=== PATIENT | female | born 1950 | race Caucasian/White ===

== ENCOUNTER 2017-06-21 08:15 | Outpatient (CLI) | payer MEDICARE, MEDICAID | END 2017-06-21 08:16 | disposition home or self-care (01) | LOC: BICMAMMO 08:15 | PROVIDERS: ATTEND Nurse Practitioner Family | DX: Z12.31 Encounter for screening mammogram for malignant neoplasm of breast (principal) | CPT/HCPCS: 77063; 77067 ==

== ENCOUNTER 2018-01-19 08:26 | Outpatient (CLI) | payer MEDICARE, MEDICAID ==
[2018-01-19 10:22] LABS: #Eosinphils 0.2 thou/uL (0.0-0.7); #Monocytes 0.5 thou/uL (0.11-0.59); #Neutrophils 4.4 thou/uL (1.40-6.50); %Basophils 0.6 % (0.0-1.0); %Eosinophils 2.4 % (0.0-10.0); %Lymphocytes 37.3 % (21.0-51.0); %Monocytes 5.7 % (0.0-10.0); %Neutrophils 54.1 % (42.0-75.0); Hemoglobin 12.3 g/dL (12.0-16.0); Mean Corpuscular HGB CONC 34.6 g/dL (32.0-36.0); Mean Corpuscular Hemoglobin 31.4 pg (27.0-31.0); Mean Corpuscular Volume 90.8 fL (78.0-98.0); Mean Platelet Volume 6.2 fL (7.4-10.4); Platelet Count 276 thou/uL (130-400); RBC Distribution Width 11.7 % (11.5-14.5); Red Blood Cell (RBC) Count 3.93 mill/uL (4.20-5.40); White Blood Cell (WBC) Count 8.1 thou/uL (4.8-10.8)
[2018-01-19 10:27] LABS: Bilirubin Negative (Negative); Blood, Urine Negative (Negative); Clarity CLEAR (Clear); Glucose, Urine (Dipstick) Negative (Negative); Leukocyte Moderate (Negative); Nitrite Negative (Negative); Protein, Urine (Dipstick) Negative (Neg-Trace); Prothrombin Time 13.3 SEC (12.0-14.7); Specific Gravity, Urine 1.024 (1.002-1.036); Urobilinogen 0.2 mg/dL (0.2-1.0); pH, Urine 5.5 (5.0-9.0)
--- NOTE | 2018-01-19 10:27 | RAD ---
RADIOGRAPH CHEST 2 VIEWS: DATE: 01-19-18 HISTORY: 67-year-old female for preoperative evaluation. FINDINGS: There is no air space density, pulmonary edema, pleural effusion, pneumothorax, or cardiomegaly. Ther e is left lateral lower pleural thickening. No interval change overall since 01-16-16. IMPRESSION: No acute cardiopulmonary findings. elle POS: [facility]
[2018-01-19 10:40] LABS: Bacteria/HPF None Seen HPF (None Seen); Hyaline Casts/LPF 0-3 HYALINE CAST LPF (0-3 Hyaline); Pathc Cast-AUWi Flag 0.29 (0-2.49); Squamous Epithelial 0-3 HPF (0-3)
[2018-01-19 10:41] LABS: Anion Gap 13 mmol/L (10-20); BUN (Urea Nitrogen) 30 mg/dL (9.8-20.1); Calc. Creatinine Clearance 0 mL/min (70-130); Calcium 9.6 mg/dL (7.8-10.44); Carbon Dioxide 24 mmol/L (23-31); Chloride 108 mmol/L (98-107); Estimated GFR-MDRD 49; Glucose 100 mg/dL (80-115); Potassium 3.5 mmol/L (3.5-5.1); Sodium 141 mmol/L (136-145)
--- NOTE | 2018-01-19 17:10 | EKG ---
Test Reason : Blood Pressure : / mmHG Vent. Rate : 069 BPM Atrial Rate : 069 BPM P-R Int : 176 ms QRS Dur : 146 ms QT Int : 428 ms P-R-T Axes : 065 -71 046 degrees QTc Int : 458 ms Normal sinus rhythm Right bundle branch block Left anterior fascicular block Bifascicular block Abnormal ECG Confirmed by NOLA DIOR ([id number]) on 01/19/2018 5:10:24 PM Referred By: NATE Confirmed By:NOLA DIOR
== END 2018-01-19 08:27 | disposition home or self-care (01) ==
LOC: LABBT 08:26
PROVIDERS: ATTEND Orthopaedic Surgery
DX: Z01.818 Encounter for other preprocedural examination (principal); M17.12 Unilateral primary osteoarthritis, left knee
CPT/HCPCS: 71046; 80048; 81001; 85025; 85610; 87081; 93005; 93010

== ENCOUNTER 2018-01-19 08:45 | Inpatient (IN) | payer MEDICARE, MEDICAID ==
[2018-01-31] MEDS ORDERED: CEFAZOLIN/Water 2 GM/20 ML SYRINGE ONE (06:25)
[2018-01-31] MEDS ORDERED: Sodium Chloride 0.9% 100 ML ONE (06:25)
[2018-01-31] MEDS ORDERED: Fentanyl 100 MCG/2 ML VIAL ONE ×3 (06:29→09:37)
[2018-01-31] MEDS ORDERED: Midazolam HCl 2 mg/2 ml Vial ONE (06:29)
[2018-01-31] MEDS ORDERED: Lidocaine 1% (PF) 30 ML VIAL ONE (06:30)
[2018-01-31] MEDS ORDERED: Promethazine HCl 25 MG/ML VIAL ONE (09:56)
[2018-01-31] MEDS ORDERED: Zolpidem Tartrate 5 MG TAB PO PRN ×3 (10:30→12:31)
[2018-01-31] MEDS ORDERED: traMADol HCl 50 MG TAB PO PRN ×3 (10:30→11:42)
[2018-01-31] MEDS ORDERED: Ondansetron HCl/PF 4 MG/2 ML Vial IVP PRN ×3 (10:30→12:31)
[2018-01-31] MEDS ORDERED: Promethazine HCl 25 MG/ML VIAL IM PRN ×3 (10:30→12:31)
[2018-01-31] MEDS ORDERED: Fentanyl 100 MCG/2 ML VIAL IV PRN (10:30)
[2018-01-31] MEDS ORDERED: HYDROcodone/Acetaminophen 5/325 mg Tablet PO PRN ×2 (10:30)
--- NOTE | 2018-01-31 11:33 | OP ---
DATE OF PROCEDURE: 01/31/2018 PREOPERATIVE DIAGNOSIS: Left knee arthritis. POSTOPERATIVE DIAGNOSIS: Left knee arthritis. SURGEON: Alfonso Campos M.D. DATA WAREHOUSE SPECIALIST: Sherri Biswas PA-C PROCEDURE: Left total knee arthroplasty using [place] [employer] 4 femur, 3 tibia, 9 mm CSX3 polyethy maryann, and A29 patella. PROCEDURE IN DETAIL: After informed consent was obtained in the preoperative holding area. The star ent was taken to the operative suite where general anesthesia was induced. Once adequate level of ge neral anesthesia was obtained, the patient was positioned and a well-padded tourniquet was placed kenyatta und the left proximal thigh. The left lower extremity was then prepped and draped in the usual steri le fashion. Prior to exsanguination, a time out was called and all members of the surgical team agre ed upon site, surgeon, and patient. The extremity was then exsanguinated and the tourniquet was rais ed. A midline longitudinal incision was then made directly over the patella extending two fingerbrea dths above the superior pole of the patella and two fingerbreadths inferior to the inferior patellar pole of the patella. Deeper subcutaneous layers were dissected sharply and local bleeding was contro lled with Bovie electrocautery. A quad tendon longitudinal split was then made sharply and a median parapatellar arthrotomy was carried out both sharp and with Bovie electrocautery, carried down to one fingerbreadth medial to the tibial tubercle. The knee was then placed into flexion and the patella was everted nicely, and a copious fat pad ectomy was performed allowing for greater exposure of the t ibia. The computer-assisted distal femoral fiducial was then placed and pinned firmly, and the dista l femoral cutting guide was pinned firmly into place. The oscillating saw was then used to remove th e appropriate amount of bone. The 4-in-1 cutting block was then placed on the distal femur and the o scillating saw was used to remove the appropriate amount of bone off of the anterior, posterior, and chamfer cuts. After completion of bone cuts, the anterior cruciate ligament was resected sharply and the posterior cruciate ligament retractor was placed and the tibia was subluxed for better exposure. Partial meniscectomies were carried out, and the tibial computer-assisted fiducial was pinned, and the cutting guide was placed. Oscillating saw was then used to remove the bone with Hohmann retracto rs used to take care and protect the collateral ligaments. After the tibial resection was performed, a laminar power generating plant operator was placed in between the freshened bone cuts. The knee placed at 90 degrees and further bilateral meniscectomies were carried out, and the curved osteotome and curettage was used t o remove any excess bone spurs in the posterior compartment. The trial femoral component, tibial bas eplate were placed with the appropriate polyethylene trial insert with an appropriate polyethylene sp acer and patellar button. The knee was taken through full range of motion with flexion and extension from 0-90 degrees and patellar broach squarely in the trochlea without any squinting or subluxation noted. The knee was also stable to varus and valgus stressing at 0, 15, 45, and 90 degrees of flexio n. The drawer was negative. All trial components were then removed and the keel punch was used to pr ovide the appropriate defect in the tibia with a mallet. The freshened bone cuts were copiously irri gated with pulsatile lavage of about 1-1/2 liters to remove all excess debris. The freshened bone cu ts were then dried and with suction and lap sponge. The knee was placed in flexion and retractors we re placed to provide access to all bone cuts. Tobramycin impregnated methyl methacrylate cement was then placed on the freshened bone cuts and implants which were malleted firmly into place. Curettage and Beckley elevators were used to remove any excess bone cement. The knee was placed into full exten hilary and the patellar button was placed under compression, and the cement was allowed to cure. Once completed, the components were again taken through full range of motion and copious irrigation of the knee was carried out with another liter of normal saline. All components were inspected fully with full range of motion and varus and valgus stressing. There was no laxity noted and full extension was observed clinically. Primary closure was accomplished with #2 interrupted Vicryl stitch of the arth rotomy defect. This was oversewn with a #2 running Quill barbed stitch. The gravitational platelet system was then injected into the arthrotomy prior to closure. The subcutaneous layer was then close d with a running 0 barbed Monocryl stitch and skin closure accomplished with a running subcuticular 3 -0 Monocryl barbed Quill stitch and augmented with cement on the skin. Tourniquet was lowered. Good spontaneous return of distal pulses was noted clinically and a sterile dressing was applied to the i ncision. The procedure was terminated without any complications. The patient was awakened in the op erative suite and the tourniquet was removed, and the patient was taken to the recovery room in stabl e condition.
[2018-01-31] MEDS ORDERED: PROVENTIL INHALER 6.7 G (200 INHALATIONS) INH PRN (11:41)
[2018-01-31] MEDS ORDERED: Fentanyl 100 MCG/2 ML VIAL SLOW IVP PRN ×2 (11:42)
[2018-01-31] MEDS ORDERED: diphenhydrAMINE 25 MG CAP PO PRN ×2 (11:42→12:31)
[2018-01-31] MEDS ORDERED: HYDROcodone/Acetaminophen 10/325 mg Tablet PO PRN ×2 (11:42)
[2018-01-31] MEDS ORDERED: HYDROmorphone 2 MG/ML VIAL ONE (12:19)
[2018-01-31] MEDS ORDERED: diphenhydrAMINE 50 MG/ML VIAL IM/IV PRN (12:31)
[2018-01-31] MEDS ORDERED: Naloxone HCl 0.4 mg/ml Vial IV PRN (12:31)
[2018-01-31] MEDS ORDERED: Ropivacaine 0.5% HCl/PF (150 MG/30 ML VIAL) ONE (13:08)
[2018-01-31] MEDS ORDERED: Bupivacaine 0.25% HCL 30 ML VIAL ONE (13:08)
--- NOTE | 2018-01-31 13:11 | RAD ---
LEFT KNEE TWO VIEWS: History: Left knee pain. Arthritis. Knee replacement. FINDINGS: Total knee prosthesis is in place without perihardware lucency. Intracapsular and soft tissue gas are consistent with recent surgery. IMPRESSION: Left knee prosthesis in good radiographic position. POS: [facility]
[2018-01-31] MEDS: Sodium Chloride 0.9% 1,000 ML IV SCH ×2 (15:15→21:14)
[2018-01-31] MEDS: CEFAZOLIN/Water 2 GM/20 ML SYRINGE SLOW IVP SCH ×2 (15:32→21:14)
[2018-01-31] MEDS ORDERED: Prevnar 13-Val Conj/PF 0.5 ML SYRINGE IM ONE (16:45)
--- NOTE | 2018-01-31 19:01 | PDOC.PN ---
- Subjective Encounter Start Date: 01/31/18 Encounter Start Time: 17:00 Subjective: no sob or chest pain -: ate her dinner - Objective MAR Reviewed: Yes Vital Signs & Weight: Vital Signs (12 hours) Temp Pulse Resp BP Pulse Ox 01/31/18 15:50 97.3 F L 81 18 125/72 96 Weight Weight 251 lb Phys Exam - Physical Examination HEENT: PERRLA, moist MMs Neck: no JVD, supple Respiratory: no wheezing, no rales Cardiovascular: RRR, no significant murmur Gastrointestinal: soft, non-tender, positive bowel sounds Musculoskeletal: pulses present left knee in dressing, has nerve block Neurological: non-focal, moves all 4 limbs Psychiatric: normal affect, A&O x 3 Dx/Plan (1) Status post total knee replacement, left Code(s): Z96.652 - PRESENCE OF LEFT ARTIFICIAL KNEE JOINT Status: Acute Comment: 01/31/2018 (2) HTN (hypertension) Code(s): I10 - ESSENTIAL (PRIMARY) HYPERTENSION Status: Chronic Qualifiers: Hypertension type: essential hypertension Qualified Code(s): I10 - Essential (primary) hypertension (3) Hypothyroidism Code(s): E03.9 - HYPOTHYROIDISM, UNSPECIFIED Status: Chronic Qualifiers: Hypothyroidism type: unspecified Qualified Code(s): E03.9 - Hypothyroidism , unspecified (4) GERD (gastroesophageal reflux disease) Code(s): K21.9 - GASTRO-ESOPHAGEAL REFLUX DISEASE WITHOUT ESOPHAGITIS Status: Chronic Qualifiers: Esophagitis presence: esophagitis presence not specified Qualified Code(s) : K21.9 - Gastro-esophageal reflux disease without esophagitis (5) Bifascicular bundle branch block Code(s): I45.2 - BIFASCICULAR BLOCK Status: Chronic (6) Morbid obesity with BMI of 45.0-49.9, adult Code(s): E66.01 - MORBID (SEVERE) OBESITY DUE TO EXCESS CALORIES; Z68.42 - BODY MASS INDEX (BMI) 45.0-49.9, ADULT Status: Chronic - Plan hold hctz, is on normal saline 100mls/hr -: on fentanyl, ropivacaine nr block -: asp bid for dvt prophylaxis -: continue synthroid, dulera and alb inhaler -: PT to mobilize per 's advice * . Review of Systems - Medications/Allergies Allergies/Adverse Reactions: Allergies Allergy/AdvReac Type Severity Reaction Status Date / Time adhesive Allergy blisters Verified 01/31/18 16:30 Medications: Current Medications Acetaminophen (Tylenol) 650 mg PO Q4H PRN PRN Reason: MANUEL/ T > 101F; Mild Pain (1-3) Albuterol Sulfate (Proventil Hfa) 2 puff INH ASDIR PRN PRN Reason: ASTHMA Albuterol Sulfate (Proventil Sr) 4 mg PO QAM [facility] Aspirin (Ecotrin) 81 mg PO BID [facility] Cefazolin Sodium (Ancef) 2 gm SLOW IVP Q8HR [facility] Stop: 01/31/18 22:01 Last Admin: 01/31/18 15:32 Dose: Not Given Cholecalciferol (Vitamin D3) 1,000 units PO DAILY [facility] Diphenhydramine HCl (Benadryl) 25 mg IM/IV Q3H PRN PRN Reason: Itching Diphenhydramine HCl (Benadryl) 25 mg PO Q3H PRN PRN Reason: Itching Ferrous Gluconate (Fergon) 324 mg PO BID [facility] Hydrochlorothiazide (Hydrochlorothiazide) 25 mg PO QAM [facility] Ropivacaine 250 ml/ Device 250 mls @ 10 mls/hr NERVE BLCK INF [facility] Sodium Chloride (Normal Saline 0.9%) 1,000 mls @ 100 mls/hr IV .Q10H [facility] Last Admin: 01/31/18 15:15 Dose: Not Given Fentanyl Citrate 2,000 mcg/ (Sodium Chloride) 100 mls @ 0 mls/hr IV INF PRN PRN Reason: Pain Iron/Minerals/Multivitamins (Theragran M) 1 tab PO DAILY [facility] Levothyroxine Sodium (Synthroid) 25 mcg PO QAM [facility] Mometasone Furoate/Formoterol Fumar (Dulera 100 Mcg/5 Mcg Inhaler) 2 puff INH BID-RT [facility] Naloxone HCl (Narcan) 0.2 mg IV Q5MIN PRN PRN Reason: RR <8 or pt obtun/unarousable Ondansetron HCl (Zofran) 4 mg IVP Q6H PRN PRN Reason: Nausea/Vomiting Pantoprazole Sodium (Protonix) 40 mg PO HS [facility] Promethazine HCl (Phenergan) 12.5 mg IM Q4H PRN PRN Reason: Nausea/Vomiting Senna/Docusate Sodium (Senokot S) 2 tab PO BID [facility] Sodium Chloride (Flush - Normal Saline) 10 ml IVF PRN PRN PRN Reason: Saline Flush Zolpidem Tartrate (Ambien) 5 mg PO HSPRN PRN PRN Reason: Insomnia
[2018-01-31] MEDS: Mometasone/Formoterol 120 PUFF INHALER INH SCH (20:11)
[2018-01-31] MEDS ORDERED: Non-Formulary Item 1 EACH (Budesonide-Formoterol [Symbicort 80-4.5] 1 PUFF) INH SCH (21:00)
[2018-01-31] MEDS: Aspirin 81 mg Enteric Coated Tablet PO SCH (21:13)
[2018-02-01] MEDS: Acetaminophen 325 MG TAB PO PRN ×2 (02:43→11:06)
[2018-02-01 05:10] LABS: Hemoglobin 11.4 g/dL (12.0-16.0); Mean Corpuscular HGB CONC 34.3 g/dL (32.0-36.0); Mean Corpuscular Hemoglobin 31.8 pg (27.0-31.0); Mean Corpuscular Volume 92.8 fL (78.0-98.0); Mean Platelet Volume 6.8 fL (7.4-10.4); Platelet Count 265 thou/uL (130-400); RBC Distribution Width 11.7 % (11.5-14.5); Red Blood Cell (RBC) Count 3.57 mill/uL (4.20-5.40); White Blood Cell (WBC) Count 11.1 thou/uL (4.8-10.8)
[2018-02-01] MEDS: fentaNYL Citrate/PF 2,000 MCG in Sodium Chloride 0.9% 60 ML IV PRN ×2 (05:23→18:53)
[2018-02-01 05:29] LABS: Anion Gap 11 mmol/L (10-20); BUN (Urea Nitrogen) 29 mg/dL (9.8-20.1); Calc. Creatinine Clearance 91 mL/min (70-130); Calcium 8.1 mg/dL (7.8-10.44); Carbon Dioxide 23 mmol/L (23-31); Chloride 109 mmol/L (98-107); Estimated GFR-MDRD 52; Glucose 100 mg/dL (80-115); Potassium 3.5 mmol/L (3.5-5.1); Sodium 139 mmol/L (136-145)
[2018-02-01] MEDS: Mometasone/Formoterol 120 PUFF INHALER INH SCH ×2 (06:31→18:58)
[2018-02-01] MEDS: Aspirin 81 mg Enteric Coated Tablet PO SCH ×2 (08:57→20:37)
[2018-02-01] MEDS: Senokot S 8.6-50 MG TAB PO SCH ×2 (08:57→20:38)
[2018-02-01] MEDS: Multivitamin W/ Minerals 1 TAB PO SCH (08:58)
[2018-02-01] MEDS: Ferrous Gluconate 324 MG TAB PO SCH ×2 (08:58→20:37)
[2018-02-01] MEDS: Levothyroxine Sodium 25 MCG TAB PO SCH (08:58)
[2018-02-01] MEDS ORDERED: Hydrochlorothiazide 25 MG TAB PO SCH (09:00)
[2018-02-01] MEDS: Sodium Chloride 0.9% 1,000 ML IV SCH ×2 (09:01→16:39)
[2018-02-01] MEDS ORDERED: Ibuprofen 800 MG TAB PO SCH (11:00)
[2018-02-01] MEDS: Albuterol Sulfate 4 mg SR Tablet PO SCH (11:06)
--- NOTE | 2018-02-01 11:08 | PRG ---
DATE OF SERVICE: 02/01/2018 SUBJECTIVE: Maegan is a 68-year-old white female postop day #1 from a left total knee arthroplasty. Her pain is relatively well controlled, but her mobility is questionable at this point, I believe she was able to stand at the bedside yesterday. She is using her STRAIGHTENER AND ALIGNER. OBJECTIVE: Temperature 98.5, pulse 74, respiratory rate is 18-20. She is 92% on room air, blood pre ssure is 118/70. She is alert and oriented to person, place, time, and situation. Grossly nonfocal. Her incision is clean and closed and she is neurovascularly intact in the involved extremity. Hemoglobin and hematocrit 11.4 and 33.2. ASSESSMENT: A 68-year-old white female postop day #1 left total knee arthroplasty. Questionable mo bility at this point and pain control has been difficult as well. PLAN: We will go ahead and consult for either an inpatient rehabilitation stay or [facility] fa cility to follow discharge. We will recheck tomorrow.
--- NOTE | 2018-02-01 11:31 | PDOC.PN ---
- Subjective Encounter Start Date: 02/01/18 Encounter Start Time: 09:15 Subjective: no sob, feels nauseous this am -: has not had bm from yesterday -: left knee is hurting - Objective MAR Reviewed: Yes Vital Signs & Weight: Vital Signs (12 hours) Temp Pulse Resp BP Pulse Ox 02/01/18 08:00 98.5 F 74 22 H 02/01/18 07:30 98.5 F 74 22 H 118/70 92 L 02/01/18 04:00 98.3 F 70 18 115/62 92 L 02/01/18 00:00 97.9 F 72 16 119/63 91 L Weight Weight 251 lb I&O: 01/31/18 02/01/18 02/02/18 06:59 06:59 06:59 Intake Total 1520 Output Total 500 500 Balance -500 1020 Result Diagrams: 02/01/18 04:44 02/01/18 04:44 Phys Exam - Physical Examination HEENT: PERRLA, moist MMs Neck: no JVD, supple Respiratory: no wheezing, no rales Cardiovascular: RRR, no significant murmur Gastrointestinal: soft, non-tender, positive bowel sounds Musculoskeletal: pulses present left knee post op changes with mild edema Neurological: non-focal, moves all 4 limbs Psychiatric: normal affect, A&O x 3 Dx/Plan (1) Status post total knee replacement, left Code(s): Z96.652 - PRESENCE OF LEFT ARTIFICIAL KNEE JOINT Status: Acute Comment: 01/31/2018 (2) HTN (hypertension) Code(s): I10 - ESSENTIAL (PRIMARY) HYPERTENSION Status: Chronic Qualifiers: Hypertension type: essential hypertension Qualified Code(s): I10 - Essential (primary) hypertension (3) Hypothyroidism Code(s): E03.9 - HYPOTHYROIDISM, UNSPECIFIED Status: Chronic Qualifiers: Hypothyroidism type: unspecified Qualified Code(s): E03.9 - Hypothyroidism , unspecified (4) GERD (gastroesophageal reflux disease) Code(s): K21.9 - GASTRO-ESOPHAGEAL REFLUX DISEASE WITHOUT ESOPHAGITIS Status: Chronic Qualifiers: Esophagitis presence: esophagitis presence not specified Qualified Code(s) : K21.9 - Gastro-esophageal reflux disease without esophagitis (5) Bifascicular bundle branch block Code(s): I45.2 - BIFASCICULAR BLOCK Status: Chronic (6) Morbid obesity with BMI of 45.0-49.9, adult Code(s): E66.01 - MORBID (SEVERE) OBESITY DUE TO EXCESS CALORIES; Z68.42 - BODY MASS INDEX (BMI) 45.0-49.9, ADULT Status: Chronic - Plan likely will need rehab/swing bed -: is on fentanyl crane hoist or lift operator, norco -: asp bid, synthroid, dulera and alb inh -: mobilize per ortho advice * . Review of Systems - Medications/Allergies Allergies/Adverse Reactions: Allergies Allergy/AdvReac Type Severity Reaction Status Date / Time adhesive Allergy blisters Verified 01/31/18 16:30 Medications: Current Medications Acetaminophen (Tylenol) 650 mg PO Q4H PRN PRN Reason: MANUEL/ T > 101F; Mild Pain (1-3) Last Admin: 02/01/18 11:06 Dose: 650 mg Albuterol Sulfate (Proventil Hfa) 2 puff INH ASDIR PRN PRN Reason: ASTHMA Albuterol Sulfate (Proventil Sr) 4 mg PO QAM [facility] Last Admin: 02/01/18 11:06 Dose: 4 mg Aspirin (Ecotrin) 81 mg PO BID [facility] Last Admin: 02/01/18 08:57 Dose: 81 mg Cholecalciferol (Vitamin D3) 1,000 units PO DAILY [facility] Last Admin: 02/01/18 08:57 Dose: 1,000 units Diphenhydramine HCl (Benadryl) 25 mg IM/IV Q3H PRN PRN Reason: Itching Diphenhydramine HCl (Benadryl) 25 mg PO Q3H PRN PRN Reason: Itching Ferrous Gluconate (Fergon) 324 mg PO BID [facility] Last Admin: 02/01/18 08:58 Dose: 324 mg Ropivacaine 250 ml/ Device 250 mls @ 10 mls/hr NERVE BLCK INF [facility] Sodium Chloride (Normal Saline 0.9%) 1,000 mls @ 100 mls/hr IV .Q10H [facility] Last Admin: 02/01/18 09:01 Dose: 1,000 mls Fentanyl Citrate 2,000 mcg/ (Sodium Chloride) 100 mls @ 0 mls/hr IV INF PRN PRN Reason: Pain Last Admin: 02/01/18 05:23 Dose: 100 mls Ibuprofen (Motrin) 800 mg PO BID [facility] Ibuprofen (Motrin) 800 mg PO 1100 [facility] Stop: 02/01/18 12:00 Iron/Minerals/Multivitamins (Theragran M) 1 tab PO DAILY [facility] Last Admin: 02/01/18 08:58 Dose: 1 tab Levothyroxine Sodium (Synthroid) 25 mcg PO QAM [facility] Last Admin: 02/01/18 08:58 Dose: 25 mcg Mometasone Furoate/Formoterol Fumar (Dulera 100 Mcg/5 Mcg Inhaler) 2 puff INH BID-RT [facility] Last Admin: 02/01/18 06:31 Dose: Not Given Naloxone HCl (Narcan) 0.2 mg IV Q5MIN PRN PRN Reason: RR <8 or pt obtun/unarousable Ondansetron HCl (Zofran) 4 mg IVP Q6H PRN PRN Reason: Nausea/Vomiting Last Admin: 02/01/18 06:21 Dose: 4 mg Pantoprazole Sodium (Protonix) 40 mg PO HS [facility] Promethazine HCl (Phenergan) 12.5 mg IM Q4H PRN PRN Reason: Nausea/Vomiting Last Admin: 02/01/18 08:57 Dose: 12.5 mg Senna/Docusate Sodium (Senokot S) 2 tab PO BID [facility] Last Admin: 02/01/18 08:57 Dose: 2 tab Sodium Chloride (Flush - Normal Saline) 10 ml IVF PRN PRN PRN Reason: Saline Flush Tramadol HCl (Ultram) 100 mg PO Q6HR [facility] Zolpidem Tartrate (Ambien) 5 mg PO HSPRN PRN PRN Reason: Insomnia
[2018-02-01 11:44] VITALS: BMI 47.2
[2018-02-01] MEDS: traMADol HCl 50 MG TAB PO SCH ×3 (11:44→23:23)
[2018-02-01] MEDS: Ropivacaine HCl/PF 250 ML in Premix Bag 1 BAG NERVE BLCK SCH (15:14)
[2018-02-01] MEDS: Ibuprofen 800 MG TAB PO SCH (20:37)
[2018-02-02 05:05] LABS: Hemoglobin 10.1 g/dL (12.0-16.0); Mean Corpuscular HGB CONC 33.9 g/dL (32.0-36.0); Mean Corpuscular Hemoglobin 31.5 pg (27.0-31.0); Mean Corpuscular Volume 93.1 fL (78.0-98.0); Mean Platelet Volume 6.6 fL (7.4-10.4); Platelet Count 237 thou/uL (130-400); RBC Distribution Width 11.7 % (11.5-14.5); Red Blood Cell (RBC) Count 3.19 mill/uL (4.20-5.40); White Blood Cell (WBC) Count 9.4 thou/uL (4.8-10.8)
[2018-02-02] MEDS: traMADol HCl 50 MG TAB PO SCH ×4 (06:01→23:40)
[2018-02-02] MEDS: Mometasone/Formoterol 120 PUFF INHALER INH SCH ×2 (06:06→19:51)
[2018-02-02] MEDS: Sodium Chloride 0.9% 1,000 ML IV SCH ×2 (06:47→14:28)
[2018-02-02] MEDS: Levothyroxine Sodium 25 MCG TAB PO SCH (08:52)
[2018-02-02] MEDS: Albuterol Sulfate 4 mg SR Tablet PO SCH (08:52)
[2018-02-02] MEDS: Multivitamin W/ Minerals 1 TAB PO SCH (08:52)
[2018-02-02] MEDS: Aspirin 81 mg Enteric Coated Tablet PO SCH ×2 (08:52→20:04)
[2018-02-02] MEDS: Ibuprofen 800 MG TAB PO SCH ×2 (08:52→20:05)
[2018-02-02] MEDS: Ferrous Gluconate 324 MG TAB PO SCH ×2 (08:52→20:04)
[2018-02-02] MEDS: Senokot S 8.6-50 MG TAB PO SCH ×2 (08:52→20:05)
--- NOTE | 2018-02-02 10:15 | PDOC.PN ---
- Subjective Encounter Start Date: 02/02/18 Encounter Start Time: 09:15 Subjective: no sob, pain is better this morning -: has not ambulated post op - Objective MAR Reviewed: Yes Vital Signs & Weight: Vital Signs (12 hours) Temp Pulse Resp BP Pulse Ox 02/02/18 08:46 98.2 F 69 14 113/62 96 02/02/18 04:24 97.9 F 68 18 113/49 L 97 02/02/18 01:01 98 F 60 18 100/58 L 95 Weight Admit Weight 250 lb Weight 250 lb I&O: 02/01/18 02/02/18 02/03/18 06:59 06:59 06:59 Intake Total 2400 Output Total 500 500 Balance -500 1900 Result Diagrams: 02/02/18 04:40 02/01/18 04:44 Phys Exam - Physical Examination HEENT: PERRLA, moist MMs Neck: no JVD, supple Respiratory: no wheezing, no rales Cardiovascular: RRR, no significant murmur Gastrointestinal: soft, non-tender, positive bowel sounds Musculoskeletal: no edema, pulses present Neurological: non-focal, moves all 4 limbs Psychiatric: normal affect, A&O x 3 Dx/Plan (1) Status post total knee replacement, left Code(s): Z96.652 - PRESENCE OF LEFT ARTIFICIAL KNEE JOINT Status: Acute Comment: 01/31/2018 (2) HTN (hypertension) Code(s): I10 - ESSENTIAL (PRIMARY) HYPERTENSION Status: Chronic Qualifiers: Hypertension type: essential hypertension Qualified Code(s): I10 - Essential (primary) hypertension (3) Hypothyroidism Code(s): E03.9 - HYPOTHYROIDISM, UNSPECIFIED Status: Chronic Qualifiers: Hypothyroidism type: unspecified Qualified Code(s): E03.9 - Hypothyroidism , unspecified (4) GERD (gastroesophageal reflux disease) Code(s): K21.9 - GASTRO-ESOPHAGEAL REFLUX DISEASE WITHOUT ESOPHAGITIS Status: Chronic Qualifiers: Esophagitis presence: esophagitis presence not specified Qualified Code(s) : K21.9 - Gastro-esophageal reflux disease without esophagitis (5) Bifascicular bundle branch block Code(s): I45.2 - BIFASCICULAR BLOCK Status: Chronic (6) Morbid obesity with BMI of 45.0-49.9, adult Code(s): E66.01 - MORBID (SEVERE) OBESITY DUE TO EXCESS CALORIES; Z68.42 - BODY MASS INDEX (BMI) 45.0-49.9, ADULT Status: Chronic - Plan is tolerating oral diet now with no nausea/vomiting -: awaiting rehab eval, counselled reg incentive spirometry use -: continue asp bid, synthroid, dulera, alb inhaler -: hold hctz (sbp around 110) -: fentanyl, norco prn, ropivacaine nerve block * . Review of Systems - Medications/Allergies Allergies/Adverse Reactions: Allergies Allergy/AdvReac Type Severity Reaction Status Date / Time adhesive Allergy blisters Verified 01/31/18 16:30 Medications: Current Medications Acetaminophen (Tylenol) 650 mg PO Q4H PRN PRN Reason: MANUEL/ T > 101F; Mild Pain (1-3) Last Admin: 02/01/18 11:06 Dose: 650 mg Albuterol Sulfate (Proventil Hfa) 2 puff INH ASDIR PRN PRN Reason: ASTHMA Albuterol Sulfate (Proventil Sr) 4 mg PO QAM [facility] Last Admin: 02/02/18 08:52 Dose: 4 mg Aspirin (Ecotrin) 81 mg PO BID [facility] Last Admin: 02/02/18 08:52 Dose: 81 mg Cholecalciferol (Vitamin D3) 1,000 units PO DAILY [facility] Last Admin: 02/02/18 08:52 Dose: 1,000 units Diphenhydramine HCl (Benadryl) 25 mg IM/IV Q3H PRN PRN Reason: Itching Diphenhydramine HCl (Benadryl) 25 mg PO Q3H PRN PRN Reason: Itching Ferrous Gluconate (Fergon) 324 mg PO BID [facility] Last Admin: 02/02/18 08:52 Dose: 324 mg Ropivacaine 250 ml/ Device 250 mls @ 10 mls/hr NERVE BLCK INF [facility] Last Admin: 02/01/18 15:14 Dose: 250 mls Sodium Chloride (Normal Saline 0.9%) 1,000 mls @ 100 mls/hr IV .Q10H [facility] Last Admin: 02/02/18 06:47 Dose: Not Given Fentanyl Citrate 2,000 mcg/ (Sodium Chloride) 100 mls @ 0 mls/hr IV INF PRN PRN Reason: Pain Last Admin: 02/01/18 18:53 Dose: 100 mls Ibuprofen (Motrin) 800 mg PO BID [facility] Last Admin: 02/02/18 08:52 Dose: 800 mg Iron/Minerals/Multivitamins (Theragran M) 1 tab PO DAILY [facility] Last Admin: 02/02/18 08:52 Dose: 1 tab Levothyroxine Sodium (Synthroid) 25 mcg PO QAM [facility] Last Admin: 02/02/18 08:52 Dose: 25 mcg Mometasone Furoate/Formoterol Fumar (Dulera 100 Mcg/5 Mcg Inhaler) 2 puff INH BID-RT [facility] Last Admin: 02/02/18 06:06 Dose: Not Given Naloxone HCl (Narcan) 0.2 mg IV Q5MIN PRN PRN Reason: RR <8 or pt obtun/unarousable Ondansetron HCl (Zofran) 4 mg IVP Q6H PRN PRN Reason: Nausea/Vomiting Last Admin: 02/01/18 06:21 Dose: 4 mg Pantoprazole Sodium (Protonix) 40 mg PO HS [facility] Last Admin: 02/01/18 20:38 Dose: 40 mg Promethazine HCl (Phenergan) 12.5 mg IM Q4H PRN PRN Reason: Nausea/Vomiting Last Admin: 02/01/18 08:57 Dose: 12.5 mg Senna/Docusate Sodium (Senokot S) 2 tab PO BID [facility] Last Admin: 02/02/18 08:52 Dose: 2 tab Sodium Chloride (Flush - Normal Saline) 10 ml IVF PRN PRN PRN Reason: Saline Flush Tramadol HCl (Ultram) 100 mg PO Q6HR [facility] Last Admin: 02/02/18 06:01 Dose: 100 mg Zolpidem Tartrate (Ambien) 5 mg PO HSPRN PRN PRN Reason: Insomnia
[2018-02-02] MEDS: Ropivacaine HCl/PF 250 ML in Premix Bag 1 BAG NERVE BLCK SCH (16:55)
[2018-02-03] MEDS: Sodium Chloride 0.9% 1,000 ML IV SCH (03:12)
[2018-02-03 04:57] LABS: Hemoglobin 9.9 g/dL (12.0-16.0); Mean Corpuscular HGB CONC 33.4 g/dL (32.0-36.0); Mean Corpuscular Hemoglobin 31.2 pg (27.0-31.0); Mean Corpuscular Volume 93.5 fL (78.0-98.0); Mean Platelet Volume 6.7 fL (7.4-10.4); Platelet Count 244 thou/uL (130-400); RBC Distribution Width 11.7 % (11.5-14.5); Red Blood Cell (RBC) Count 3.16 mill/uL (4.20-5.40); White Blood Cell (WBC) Count 8.9 thou/uL (4.8-10.8)
[2018-02-03] MEDS: Mometasone/Formoterol 120 PUFF INHALER INH SCH (05:58)
[2018-02-03] MEDS: traMADol HCl 50 MG TAB PO SCH (05:58)
[2018-02-03] MEDS: Ibuprofen 800 MG TAB PO SCH (09:11)
[2018-02-03] MEDS: Levothyroxine Sodium 25 MCG TAB PO SCH (09:11)
[2018-02-03] MEDS: Ferrous Gluconate 324 MG TAB PO SCH (09:12)
[2018-02-03] MEDS: Multivitamin W/ Minerals 1 TAB PO SCH (09:12)
[2018-02-03] MEDS: Senokot S 8.6-50 MG TAB PO SCH (09:12)
[2018-02-03] MEDS: Aspirin 81 mg Enteric Coated Tablet PO SCH (09:12)
[2018-02-03] MEDS: Albuterol Sulfate 4 mg SR Tablet PO SCH (09:15)
[2018-02-03 12:00] VITALS: BP 133/74; TEMP 98.8
== END 2018-02-03 13:30 | DRG 470 ==
LOC: SJJU 01-31 05:40 → SURG A 01-31 15:42
PROVIDERS: ADMIT Orthopaedic Surgery; ATTEND Orthopaedic Surgery
PROC: 0SRD0J9 Replacement of Left Knee Joint with Synthetic Substitute, Cemented, Open Approach (ICD-10-PCS; principal; 2018-01-31)
DX: M17.12 Unilateral primary osteoarthritis, left knee (principal); Z68.42 Body mass index [BMI] 45.0-49.9, adult; I10 Essential (primary) hypertension; E03.9 Hypothyroidism, unspecified; K21.9 Gastro-esophageal reflux disease without esophagitis; I45.4 Nonspecific intraventricular block; E66.01 Morbid (severe) obesity due to excess calories; Z79.51 Long term (current) use of inhaled steroids; Z88.8 Allergy status to other drugs, medicaments and biological substances; Z79.82 Long term (current) use of aspirin
CPT/HCPCS: 36415; 80048; 85027; 86850; 86900; 86901; 96374; C1713; C1776; G8978-GP-CL; G8979-GP-CJ; J0131; J1170; J2001; J2250; J2405; J2550; J2795; J3010; J7050

== ENCOUNTER 2018-01-27 09:11 | Outpatient (CLI) | payer MEDICARE, MEDICAID | END 2018-01-27 09:12 | disposition home or self-care (01) | LOC: LABBT 09:11 | PROVIDERS: ATTEND Orthopaedic Surgery | DX: Z01.812 Encounter for preprocedural laboratory examination (principal); M17.12 Unilateral primary osteoarthritis, left knee | CPT/HCPCS: 86850; 86900; 86901 ==

== ENCOUNTER 2018-06-22 09:24 | Outpatient (CLI) | payer MEDICARE, MEDICAID | END 2018-06-22 09:25 | disposition home or self-care (01) | LOC: BICMAMMO 09:24 | PROVIDERS: ATTEND Nurse Practitioner Family | DX: Z12.31 Encounter for screening mammogram for malignant neoplasm of breast (principal); Z85.89 Personal history of malignant neoplasm of other organs and systems; Z80.3 Family history of malignant neoplasm of breast | CPT/HCPCS: 77063; 77067 ==

== ENCOUNTER 2018-09-26 10:38 | Outpatient (CLI) | payer MEDICARE, MEDICAID ==
--- NOTE | 2018-09-26 10:51 | RAD ---
XR Chest Pa Lat @ POB HISTORY: Dyspnea COMPARISON: 01/19/2016 study FINDINGS: Heart size within normal limits. There are atherosclerotic changes of aorta. 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 No new findings. IMPRESSION: Stable chest.
== END 2018-09-26 10:39 | disposition home or self-care (01) ==
LOC: RAD 10:38
PROVIDERS: ATTEND Internal Medicine Pulmonary Disease
DX: R06.00 Dyspnea, unspecified (principal)
CPT/HCPCS: 71046

== ENCOUNTER 2019-03-29 12:30 | Outpatient (CLI) | payer MEDICARE, MEDICAID ==
--- NOTE | 2019-03-29 12:52 | RAD ---
PA AND LATERAL CHEST: HISTORY: Dyspnea. COMPARISON: 09/26/2018 FINDINGS: Heart size is within normal limits. A pacemaker is now present. The lungs are clear of any infiltrati ve process. There is some scarring in the left base. IMPRESSION: No active intrathoracic disease. Stable chest other than placement of pacemaker. POS: [facility]
== END 2019-03-29 12:31 | disposition home or self-care (01) ==
LOC: RAD 12:30
PROVIDERS: ATTEND Internal Medicine Pulmonary Disease
DX: R06.00 Dyspnea, unspecified (principal)
CPT/HCPCS: 71046

== ENCOUNTER 2020-05-18 16:24 | Inpatient (IN) | payer MEDICARE, MEDICAID ==
[2020-05-18 17:13] LABS: #Basophils 0.1 thou/uL (0.0-0.2); #Eosinphils 0.2 thou/uL (0.0-0.7); #Lymphocytes 5.2 thou/uL (1.20-3.40); #Monocytes 1.1 thou/uL (0.11-0.59); #Neutrophils 5.7 thou/uL (1.40-6.50); %Basophils 1.2 % (0.0-1.0); %Eosinophils 1.5 % (0.0-10.0); %Lymphocytes 42.2 % (21.0-51.0); %Monocytes 8.5 % (0.0-10.0); %Neutrophils 46.6 % (42.0-75.0); Hemoglobin 12.8 g/dL (12.0-16.0); Mean Corpuscular HGB CONC 33.7 g/dL (32.0-36.0); Mean Corpuscular Hemoglobin 30.9 pg (27.0-31.0); Mean Corpuscular Volume 91.7 fL (78.0-98.0); Mean Platelet Volume 6.4 fL (7.4-10.4); Platelet Count 330 thou/uL (130-400); Red Blood Cell (RBC) Count 4.12 mill/uL (4.20-5.40); White Blood Cell (WBC) Count 12.3 thou/uL (4.8-10.8)
--- NOTE | 2020-05-18 17:17 | RAD ---
Chest AP view INDICATION: Sudden nausea and dizziness. COMPARISON: Prior exam dated March 29, 2019 FINDINGS: Lungs: The lungs are clear Cardiac silhouette: Stable mild cardiomegaly. Stable dual-lead pacemaker Pulmonary vasculature: Normal Pleural spaces: No pleural effusion or pneumothorax is demonstrated. Upper abdomen: No abnormality seen. Osseous structures: No acute osseous abnormality. Additional findings: None. IMPRESSION: No acute cardiopulmonary abnormality.
--- NOTE | 2020-05-18 17:33 | CT ---
CT BRAIN NONCONTRAST: DATE: 05/18/2020 HISTORY: 70-year-old female with sudden nausea and dizziness FINDINGS: There is no evidence of acute intra-axial or extra-axial hemorrhage. There is no midline shift or any other mass effect. There is no extra-axial fluid collection. There is no evidence of obstructive hydrocephalus. Calvarium is intact. IMPRESSION: No acute intracranial findings.
[2020-05-18 17:36] LABS: ALT (SGPT) 17 U/L (8-55); AST (SGOT) 21 U/L (5-34); Albumin 4.1 g/dL (3.4-4.8); Alkaline Phosphatase 66 U/L (40-110); Anion Gap 15 mmol/L (10-20); BUN (Urea Nitrogen) 33 mg/dL (9.8-20.1); Bilirubin, Total 0.4 mg/dL (0.2-1.2); Calc. Creatinine Clearance 0 mL/min (70-130); Calcium 8.9 mg/dL (7.8-10.44); Carbon Dioxide 20 mmol/L (23-31); Chloride 110 mmol/L (98-107); Globulin 3.8 g/dL (2.4-3.5); Glucose 107 mg/dL (80-115); Potassium 3.5 mmol/L (3.5-5.1); Protein, Total 7.9 g/dL (6.0-8.3); Sodium 141 mmol/L (136-145)
[2020-05-18] MEDS ORDERED: Promethazine HCl 25 MG/ML VIAL ONE (18:27)
[2020-05-18 19:22] LABS: Bilirubin Negative (Negative); Blood, Urine Negative (Negative); Clarity Clear (Clear); Glucose, Urine (Dipstick) Normal (Negative); Ketone, Urine Negative (Negative); Leukocyte 250 Leu/uL (Negative); Nitrite 2+ (Negative); Protein, Urine (Dipstick) 30 mg/dL (Neg-Trace); RBC/HPF 0-3 HPF (0-3); Squamous Epithelial 0-3 HPF (0-3); Urobilinogen Normal mg/dL (Less than 2)
[2020-05-18 19:31] LABS: Bacteria/HPF 1+ HPF (None Seen)
[2020-05-18] MEDS ORDERED: cefTRIAXone\\ROCEPHIN 1 GM VIAL ONE (19:47)
[2020-05-18 22:16] VITALS: BMI 49.3
--- NOTE | 2020-05-19 05:21 | PDOC.HHP ---
Hospitalist HPI - History of Present Illness History of Present Illness: ADMISSION DATE: 05/18/2020 TIME OF ASSESSMENT: 2315 PRIMARY CARE PHYSICIAN: Criselda Ortiz CHIEF COMPLAINT: Passed out HPI: Patient is a 70-year-old female past medical history significant for asthma and hypothyroid. Patient states that she has been in her normal health recently other than a cough that she has had for 1 month. She recently finished antibiotics and steroids for this cough. Patient states that she was sitting on her porch watching her grandchildren in the backyard when she suddenly felt lightheaded. She told her family she was going to pass out and was able to get herself to her rocker. At that time she did have a syncopal episode which she does not remember. She woke up shortly after and had vomited on herself. No loss of bowel or bladder during this event. Patient was still experiencing nausea and dizziness with movement that felt like motion sickness upon arrival to the ER. Patient denies any sick contacts, fever, change in medications, recent falls, change in bowel or bladder patterns. ED COURSE: Vital Signs: Blood pressure 135/63, pulse 70, respiratory rate 17, temp 97.6 oral, no pain, O2 saturation 94% on room air Prior to arrival patient received Zofran 4 mg oral and Zofran 4 mg IV by EMS. S he was noted to have a heart rate of 46 and a paced rhythm. She was afebrile with a D stick of 109. Today in the ER they completed lab work, EKG, urinalysis, CT of the brain without contrast, and chest x-ray. She was administered ceftriaxone 1 g IV and promethazine 12.5 mg IV in the ER. PAST MEDICAL HISTORY: Hypertension, bradycardia, asthma, hypothyroidism PAST SURGICAL HISTORY: Bilateral total knee replacements, hysterectomy, pacemaker placement, cataract surgery, tonsillectomy SOCIAL HISTORY: Patient lives at home with her grandchildren. She denies any alcohol, tobacco, drug use. FAMILY HISTORY: Her father smoked and had heart problems. Her mother had dementia. ALLERGIES: Adhesive tape, no known drug allergies CURRENT MEDICATIONS: Levothyroxine 25 mcg once a day Ibuprofen as needed Omeprazole 40 mg once a day Vitamin D3 5000 units once a day Cranberry 500 mg once a day Hospitalist ROS - Review of Systems Cardiovascular: reports: light headedness Gastrointestinal: reports: nausea, vomiting Neurological: reports: other (Dizzy) All other systems reviewed; all pertinent +/- noted in HPI/Subj - Exam General Appearance: NAD, awake alert Eye: PERRL ENT: normocephalic atraumatic Neck: supple Heart: RRR, no murmur, no gallops, no rubs, normal peripheral pulses Respiratory: CTAB, no wheezes, no rales, no ronchi, normal chest expansion Gastrointestinal: soft, non-tender, non-distended, normal bowel sounds Extremities: no edema Neurological: cranial nerve grossly intact, normal sensation to touch, no focal deficits Musculoskeletal: normal tone, no muscle wasting Psychiatric: normal affect, normal behavior, A&O x 3 Hospitalist Results - Labs Result Diagrams: 05/18/20 17:05 05/18/20 17:05 Lab results: WBC 12.3 thou/uL (4.8-10.8) H 05/18/20 17:05 Hgb 12.8 g/dL (12.0-16.0) 05/18/20 17:05 Hct 37.8 % (36.0-47.0) 05/18/20 17:05 MCV 91.7 fL (78.0-98.0) 05/18/20 17:05 Plt Count 330 thou/uL (130-400) 05/18/20 17:05 Neutrophils % 46.6 % (42.0-75.0) 05/18/20 17:05 Sodium 141 mmol/L (136-145) 05/18/20 17:05 Potassium 3.5 mmol/L (3.5-5.1) 05/18/20 17:05 Chloride 110 mmol/L (98-107) H 05/18/20 17:05 Carbon Dioxide 20 mmol/L (23-31) L 05/18/20 17:05 BUN 33 mg/dL (9.8-20.1) H 05/18/20 17:05 Creatinine 1.41 mg/dL (0.6-1.1) H 05/18/20 17:05 Glucose 107 mg/dL (80-115) 05/18/20 17:05 Calcium 8.9 mg/dL (7.8-10.44) 05/18/20 17:05 Total Bilirubin 0.4 mg/dL (0.2-1.2) 05/18/20 17:05 AST 21 U/L (5-34) 05/18/20 17:05 ALT 17 U/L (8-55) 05/18/20 17:05 Alkaline Phosphatase 66 U/L (40-110) 05/18/20 17:05 Troponin I 0.013 ng/mL (< 0.028) 05/18/20 17:05 Serum Total Protein 7.9 g/dL (6.0-8.3) 05/18/20 17:05 Albumin 4.1 g/dL (3.4-4.8) 05/18/20 17:05 Urine Ketones Negative mg/dL (Negative) 05/18/20 19:00 Urine Blood Negative (Negative) 05/18/20 19:00 Urine Nitrite 2+ (Negative) A 05/18/20 19:00 Ur Leukocyte Esterase 250 Corinne/uL (Negative) A 05/18/20 19:00 Urine RBC 0-3 HPF (0-3) 05/18/20 19:00 Urine WBC 7-10 HPF (0-3) A 05/18/20 19:00 Ur Squamous Epith Cells 0-3 HPF (0-3) 05/18/20 19:00 Urine Bacteria 1+ HPF (None Seen) A 05/18/20 19:00 - EKG Interpretation EKG: Paced rhythm with no ectopic beats 73 bpm - Radiology Interpretation Chest x-ray Status: image reviewed by me, report reviewed by me Additional Comment: IMPRESSION: No acute cardiopulmonary abnormality. CT scan - head Status: report reviewed by me Additional Comment: IMPRESSION: No acute intracranial findings. Hospitalist H&P A/P - Plan Plan: Syncopal episode Echo in a.m. Low-dose aspirin started Monitor on telemetry overnight Interrogate pacemaker for potential arrhythmias Check Mag and TSH levels Leukocytosis Awaiting urine culture results Continue ceftriaxone for UTI Remains afebrile at this time Dizziness rule out TIA MRI in a.m. FLP in a.m. Neurochecks every 4 hours with NIH every shift Nausea As needed antiemetics available Hypothyroid Restart home medications once reconciled Check TSH in AM VTE prophylaxis with SCDs CODE STATUS: Full Surrogate decision-maker is her daughter
[2020-05-19] MEDS ORDERED: Acetaminophen 325 MG TAB PO PRN (05:25)
[2020-05-19] MEDS ORDERED: Ondansetron PF 4 MG/2 ML Vial IVP PRN (05:32)
[2020-05-19 06:09] LABS: #Basophils 0.1 thou/uL (0.0-0.2); #Eosinphils 0.2 thou/uL (0.0-0.7); #Lymphocytes 3.1 thou/uL (1.20-3.40); #Monocytes 0.9 thou/uL (0.11-0.59); #Neutrophils 5.6 thou/uL (1.40-6.50); %Basophils 0.8 % (0.0-1.0); %Eosinophils 1.9 % (0.0-10.0); %Lymphocytes 31.7 % (21.0-51.0); %Neutrophils 56.6 % (42.0-75.0); Hemoglobin 11.8 g/dL (12.0-16.0); Mean Corpuscular HGB CONC 33.3 g/dL (32.0-36.0); Mean Corpuscular Hemoglobin 30.8 pg (27.0-31.0); Mean Corpuscular Volume 92.4 fL (78.0-98.0); Mean Platelet Volume 6.3 fL (7.4-10.4); Platelet Count 283 thou/uL (130-400); RBC Distribution Width 12.1 % (11.5-14.5); Red Blood Cell (RBC) Count 3.84 mill/uL (4.20-5.40); White Blood Cell (WBC) Count 9.8 thou/uL (4.8-10.8)
[2020-05-19 06:42] LABS: Anion Gap 13 mmol/L (10-20); BUN (Urea Nitrogen) 28 mg/dL (9.8-20.1); Calc. Creatinine Clearance 84 mL/min (70-130); Calcium 8.6 mg/dL (7.8-10.44); Carbon Dioxide 21 mmol/L (23-31); Cardiac Risk 2.9 (Less than 4.5); Chloride 112 mmol/L (98-107); Cholesterol 160 mg/dl (< 200 Desired); Glucose 82 mg/dL (80-115); HDL Cholesterol 56 mg/dL (>60 Neg Risk); LDL Cholesterol, Calculated 91 mg/dL; Magnesium 1.4 mg/dL (1.6-2.6); Potassium 3.9 mmol/L (3.5-5.1); Sodium 142 mmol/L (136-145); Triglycerides 63 mg/dL (Less than 150)
[2020-05-19] MEDS: Aspirin 81 mg Enteric Coated Tablet PO SCH (08:55)
[2020-05-19] MEDS ORDERED: Aspirin 81 mg Enteric Coated Tablet PO SCH (09:00)
--- NOTE | 2020-05-19 13:03 | MRI ---
MRI of thebrain: 05/19/2020 COMPARISON:None available HISTORY:Nausea and dizziness, syncopal episode, question TIA TECHNIQUE: Multiplanar multisequence MR imaging of thebrain without contrast Findings:The diffusion weighted imaging demonstrates no evidence for acute infarction. The axial gradient echo imaging demonstrates no evidence for intracranial hemorrhage. Regional bone marrow signal intensity appears within normal limits. The imaged paranasal sinuses/mastoid air cells appear grossly unremarkable. Arterial flow voids at the axial level of the skull base appear unremarkable on the T2-weighted imagi ng. IMPRESSION:No evidence for acute infarction or intracranial hemorrhage.
--- NOTE | 2020-05-19 15:58 | PDOC.HOSPP ---
- Subjective Encounter Date: 05/19/20 Encounter Time: 09:45 Subjective: Patient up in bed no complaints. - Objective Vital Signs & Weight: Vital Signs (12 hours) Temp Pulse Resp BP BP BP BP 05/19/20 15:17 97.8 F 80 18 05/19/20 12:00 97.6 F 70 18 168/76 H 176/89 H 146/71 H 05/19/20 07:59 97.9 F 71 16 136/81 05/19/20 04:00 97.7 F 77 22 H 172/99 H Pulse Ox 05/19/20 15:17 97 05/19/20 12:00 99 05/19/20 07:59 98 05/19/20 04:00 96 Weight Weight 261 lb I&O: 05/18/20 05/19/20 05/20/20 06:59 06:59 06:59 Intake Total 510 Balance 510 Result Diagrams: 05/19/20 05:59 05/19/20 05:59 Hospitalist ROS - Review of Systems Cardiovascular: denies: chest pain, palpitations, orthopnea, paroxysmal noc. dyspnea, edema, light headedness, other Gastrointestinal: denies: nausea, vomiting, abdominal pain, diarrhea, constipation, melena, hematochezia, other Genitourinary: denies: dysuria, frequency, incontinence, hematuria, retention, other - Medication Medications: Active Medications Generic Name Dose Route Start Last Admin Trade Name Freq PRN Reason Stop Dose Admin Aspirin 81 mg 05/19/20 09:00 05/19/20 08:55 Aspirin 81 Mg Enteric Coated Tablet PO 81 mg DAILY BIBI Administration Sodium Chloride 10 ml 05/19/20 05:25 05/19/20 08:55 Flush - Normal Saline 10 Ml Syringe IVF 10 ml PRN PRN Administration Saline Flush - Exam Neck: negative: supple, symmetric, no JVD, no thyromegaly, no lymphadenopathy, no carotid bruit, JVD Heart: negative: RRR, no murmur, no gallops, no rubs, normal peripheral pulses, irregular, diminshed peripheral pulses, murmur present, II/IV, III/IV Respiratory: negative: CTAB, no wheezes, no rales, no ronchi, normal chest expansion, no tachypnea, normal percussion, rales, rhonchi, tachypneic, wheezes Gastrointestinal: negative: soft, non-tender, non-distended, normal bowel sounds, no palpable masses, no hepatomegaly, no splenomegaly, no bruit, no guarding, no rigidity, tender to palpation, distended, diminished bowl sounds, voluntary guarding Extremities: 1+ LE edema Hosp A/P (1) Syncope Code(s): R55 - SYNCOPE AND COLLAPSE Status: Acute (2) Bifascicular bundle branch block Code(s): I45.2 - BIFASCICULAR BLOCK Status: Chronic (3) GERD (gastroesophageal reflux disease) Code(s): K21.9 - GASTRO-ESOPHAGEAL REFLUX DISEASE WITHOUT ESOPHAGITIS Status: Chronic Qualifiers: Esophagitis presence: esophagitis presence not specified Qualified Code(s): K21.9 - Gastro-esophageal reflux disease without esophagitis (4) HTN (hypertension) Code(s): I10 - ESSENTIAL (PRIMARY) HYPERTENSION Status: Chronic Qualifiers: Hypertension type: essential hypertension Qualified Code(s): I10 - Essential (primary) hypertension (5) Hypothyroidism Code(s): E03.9 - HYPOTHYROIDISM, UNSPECIFIED Status: Chronic Qualifiers: Hypothyroidism type: unspecified Qualified Code(s): E03.9 - Hypothyroidism, unspecified (6) Morbid obesity with BMI of 45.0-49.9, adult Code(s): E66.01 - MORBID (SEVERE) OBESITY DUE TO EXCESS CALORIES; Z68.42 - BODY MASS INDEX [BMI] 45.0-49.9, ADULT Status: Chronic (7) UTI (urinary tract infection) Status: Acute - Plan Status post syncope MRI brain negative. Patient recently had an echocardiogram with her junior media buyer in [facility]. She does have a pacemaker interrogation indicated atrial tachycardia/A. fib cardiology consulted. Patient was noted to be bradycardia per notes. We will continue antibiotics for UTI. Patient's orthostatics negative
--- NOTE | 2020-05-19 16:12 | CON ---
DATE OF CONSULTATION: REASON FOR CONSULTATION: Syncope. HISTORY OF PRESENT ILLNESS: Ms. Hernandes is a 70-year-old woman, who is a patient of at [facility]. She had a pacemaker placed 1 [address] [facility]. She states she has normal state of health when she began having lightheadedness or dizziness. This was noted over several minutes. She then states she had a syncopal episode. No chest pain or pressure noted. She admits to not eating and drinking well over the last several days. PAST MEDICAL HISTORY: 1. Hypertension. 2. Bradycardia, status post pacemaker. 3. Asthma. 4. Hypothyroidism. 5. Knee replacement. 6. Hysterectomy. 7. Cataract surgery. 8. Tonsillectomy. SOCIAL HISTORY: No tobacco or alcohol use. FAMILY HISTORY: Negative for CAD. ALLERGIES: ADHESIVE. MEDICATIONS: Include; 1. Ibuprofen. 2. Omeprazole. 3. Vitamin D. 4. Cranberry. 5. Levothyroxine. REVIEW OF SYSTEMS: A 10-point review of systems is reviewed as above, otherwise negative. PHYSICAL EXAMINATION: VITAL SIGNS: Blood pressure 146/71 supine, standing 176/89. GENERAL: Patient is a pleasant woman, who is in no acute distress. The patient appears their stated age. NEUROLOGIC: The patient is alert and oriented x3 with no focal neurologic deficits. HEENT: Sclerae without icterus. Mouth has moist mucous membranes with normal pallor. NECK: No JVD. Carotid upstroke brisk. No bruits bilaterally. LUNGS: Clear to auscultation with unlabored respirations. BACK: No scoliosis or kyphosis. CARDIAC: Regular rate and rhythm with normal S1 and S2. No S3 or S4 noted. No significant rubs, murmurs, thrills, or gallops noted throughout the precordium. PMI is not displaced. There is no parasternal heave. ABDOMEN: Soft, nontender, nondistended. No peritoneal signs present. No hepatosplenomegaly. No abnormal striae. EXTREMITIES: 2+ femoral and 2+ dorsalis pedis pulses. No cyanosis, clubbing, or edema. SKIN: No gross abnormalities. PERTINENT LABORATORY DATA: Hemoglobin 10.3, hematocrit 35.4, platelet count of 283. Creatinine 1.17 down from 1.4. Troponin negative. BNP not performed. IMPRESSION: 1. Syncope. 2. Sick-sinus syndrome, status post pacemaker. RECOMMENDATIONS: 1. We will interrogate Ms. Hernandes's pacemaker. 2. Unlikely to be a primary dysrhythmia unless there is a pacemaker malfunction and can be determined after interrogation. 3. Could be related to volume depletion. The patient did have an initial increase in creatinine, which is now improved. 4. The patient has also tested positive for UTI with E coli, which may have been one of the precipitating events. 5. If pacemaker interrogation is negative, would seek noncardiac cause. ADDENDUM: Pacer interrogated. Brief intermittent runs of afib present with last episode on 05/15 for 24 sec no correlating with syncopal event. Pt states this is noted by cardiology at and followed. No etiology from a CV standpoint to syncope. Seek a non-cardiac cause. Job ID: [id number] MTDD
[2020-05-19] MEDS: Mometasone 100 MCG/Formoterol 5 MCG 120 PUFF INHALER INH SCH (18:09)
[2020-05-19] MEDS: cefTRIAXone\\ROCEPHIN 1 GM in Sodium Chloride 0.9% 100 ML IVPB SCH (20:09)
--- NOTE | 2020-05-19 21:07 | PDOC.EVN ---
Event Note - Event Note Event Note: Notified by RN, patient with several runs of Vtach. Last one was 20 beats long. Asymptomatic and normotensive. Labs from earlier today demonstrate low mg+ of 1.4 Per RN, no replacement given yet. Magnesium Sulfate 4 gm IV ordered. Will repeat lytes after replacement and continue to replace as necessary.
[2020-05-19] MEDS ORDERED: Magnesium Sulfate 4 GM in Sodium Chloride 0.9% 250 ML 250 ML IVPB SCH (21:30)
[2020-05-20 02:44] LABS: #Basophils 0.1 thou/uL (0.0-0.2); #Eosinphils 0.4 thou/uL (0.0-0.7); #Lymphocytes 3.2 thou/uL (1.20-3.40); #Monocytes 0.8 thou/uL (0.11-0.59); #Neutrophils 4.8 thou/uL (1.40-6.50); %Basophils 0.9 % (0.0-1.0); %Eosinophils 3.8 % (0.0-10.0); %Lymphocytes 35.2 % (21.0-51.0); %Monocytes 8.2 % (0.0-10.0); %Neutrophils 51.9 % (42.0-75.0); Hemoglobin 10.9 g/dL (12.0-16.0); Mean Corpuscular HGB CONC 33.3 g/dL (32.0-36.0); Mean Corpuscular Hemoglobin 30.7 pg (27.0-31.0); Mean Corpuscular Volume 92.4 fL (78.0-98.0); Mean Platelet Volume 6.6 fL (7.4-10.4); Platelet Count 258 thou/uL (130-400); Red Blood Cell (RBC) Count 3.54 mill/uL (4.20-5.40); White Blood Cell (WBC) Count 9.2 thou/uL (4.8-10.8)
[2020-05-20 03:09] LABS: Anion Gap 15 mmol/L (10-20); BUN (Urea Nitrogen) 29 mg/dL (9.8-20.1); Calc. Creatinine Clearance 100 mL/min (70-130); Calcium 8.3 mg/dL (7.8-10.44); Carbon Dioxide 18 mmol/L (23-31); Chloride 112 mmol/L (98-107); Glucose 98 mg/dL (80-115); Magnesium 2.4 mg/dL (1.6-2.6); Potassium 4.1 mmol/L (3.5-5.1); Sodium 141 mmol/L (136-145)
[2020-05-20] MEDS: Levothyroxine Sodium 25 MCG TAB PO SCH (05:52)
[2020-05-20] MEDS: Mometasone 100 MCG/Formoterol 5 MCG 120 PUFF INHALER INH SCH ×2 (07:18→19:39)
--- NOTE | 2020-05-20 08:37 | PDOC.HOSPP ---
- Subjective Encounter Date: 05/20/20 Encounter Time: 08:20 Subjective: Patient seen and examined. No new complaints. Eating breakfast at bedside reclining chair. Patient denies any chest pain, light headedness, heart palpitations, SOB, nausea or vomiting. Endorses 7 soft, loose stools. Denies ab dominal pain, hematochezia/melena. Discussed cardiology recommendations, electrolytes and UTI treatment. Discussed pending C diff results. Patient had no further questions. - Objective Vital Signs & Weight: Vital Signs (12 hours) Temp Pulse Resp BP BP Pulse Ox 05/20/20 07:47 97.9 F 72 14 137/63 95 05/20/20 07:18 75 16 95 05/20/20 04:00 98.1 F 75 18 146/78 H 94 L 05/19/20 23:29 98.2 F 82 18 150/73 H 94 L Weight Weight 261 lb I&O: 05/19/20 05/20/20 05/21/20 06:59 06:59 06:59 Intake Total 510 1850 Output Total 4 Balance 510 1846 Result Diagrams: 05/20/20 02:31 05/20/20 02:31 EKG Reviewed by me: Yes (Reviewed tele strips) Hospitalist ROS - Review of Systems Constitutional: denies: fever, chills Cardiovascular: denies: chest pain, palpitations, edema, light headedness Gastrointestinal: reports: diarrhea. denies: nausea, vomiting, abdominal pain, melena, hematochezia Genitourinary: denies: dysuria, hematuria Neurological: denies: weakness, incoordination All other systems reviewed; all pertinent +/- noted in HPI/Subj - Medication Medications: Active Medications Generic Name Dose Route Start Last Admin Trade Name Freq PRN Reason Stop Dose Admin Aspirin 81 mg 05/19/20 09:00 05/19/20 08:55 Aspirin 81 Mg Enteric Coated Tablet PO 81 mg DAILY BIBI Administration Ceftriaxone Sodium 1 gm/ 100 mls @ 200 mls/hr 05/19/20 20:00 05/19/20 20:09 Sodium Chloride IVPB 100 mls Q24HR BIBI Administration Levothyroxine Sodium 25 mcg 05/20/20 06:00 05/20/20 05:52 Levothyroxine Sodium 25 Mcg Tab PO 25 mcg 0600 BIBI Administration Mometasone Furoate/Formoterol Fumar 1 puff 05/19/20 18:30 05/20/20 07:18 Mometasone 100 Mcg/Formoterol 5 Mcg 120 Puff Inhaler INH 1 puff BID-RT BIBI Administration Pantoprazole Sodium 40 mg 05/19/20 21:00 05/19/20 20:09 Pantoprazole 40 Mg Tab PO 40 mg BID BIBI Administration Sodium Chloride 10 ml 05/19/20 05:25 05/19/20 08:55 Flush - Normal Saline 10 Ml Syringe IVF 10 ml PRN PRN Administration Saline Flush - Exam General Appearance: NAD, awake alert. negative: ill appearing Heart: RRR, no murmur, no gallops, no rubs, normal peripheral pulses Respiratory: CTAB, no wheezes, no rales, no ronchi, normal chest expansion, no tachypnea Gastrointestinal: soft, non-tender, non-distended, normal bowel sounds, no guarding, no rigidity Extremities: no cyanosis, no edema Musculoskeletal: normal tone, normal strength Psychiatric: normal affect, A&O x 3 Hosp A/P (1) Hypomagnesemia Code(s): E83.42 - HYPOMAGNESEMIA Status: Acute (2) Diarrhea Code(s): R19.7 - DIARRHEA, UNSPECIFIED Status: Acute (3) Syncope Code(s): R55 - SYNCOPE AND COLLAPSE Status: Acute (4) UTI (urinary tract infection) Status: Acute (5) Bifascicular bundle branch block Code(s): I45.2 - BIFASCICULAR BLOCK Status: Chronic (6) HTN (hypertension) Code(s): I10 - ESSENTIAL (PRIMARY) HYPERTENSION Status: Chronic Qualifiers: Hypertension type: essential hypertension Qualified Code(s): I10 - Essen tial (primary) hypertension (7) Hypothyroidism Code(s): E03.9 - HYPOTHYROIDISM, UNSPECIFIED Status: Chronic Qualifiers: Hypothyroidism type: unspecified Qualified Code(s): E03.9 - Hypothyroidism, unspecified (8) Morbid obesity with BMI of 45.0-49.9, adult Code(s): E66.01 - MORBID (SEVERE) OBESITY DUE TO EXCESS CALORIES; Z68.42 - BODY MASS INDEX [BMI] 45.0-49.9, ADULT Status: Chronic - 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 Mag level was 1.4, improved to 2.4 after replacement UTI- UCX + E. Coli, continue rocephin. Diarrhea - Reports no stools today, C diff antigen/toxin negative, discontinue enteric contact precautions. Syncope - PM interrogation, documented atrial fibrillation, cardiology signed off, non-cardiac causality. Orthostatic VS negative. Brain imaging unremarkable.
[2020-05-20] MEDS: Aspirin 81 mg Enteric Coated Tablet PO SCH (09:18)
[2020-05-20] MEDS: Cholecalciferol 1,000 UNITS (25 MCG) TAB PO SCH (09:19)
--- NOTE | 2020-05-20 13:55 | ULT ---
BILATERAL CAROTID DOPPLER ULTRASOUND: HISTORY: Syncope. TECHNIQUE: Mederos scale ultrasound with color flow and spectral Doppler imaging of the extracranial carotid artery system is performed bilaterally. FINDINGS: There is plaque formation on either side. The peak systolic velocity in the right ICA measures 124 cm/s with an end-diastolic velocity of 26 cm /s and a systolic ratio of 1.07. The peak systolic velocity in the left ICA measures 118 cm/s with an end-diastolic velocity of 36 cm/ s and a systolic ratio of 1.14. Flow in both vertebral arteries remains antegrade. IMPRESSION: No evidence of hemodynamically significant stenosis. POS: AH
--- NOTE | 2020-05-20 17:35 | EKG ---
Test Reason : STAT Blood Pressure : / mmHG Vent. Rate : 096 BPM Atrial Rate : 073 BPM P-R Int : 208 ms QRS Dur : 154 ms QT Int : 440 ms P-R-T Axes : 074 -77 091 degrees QTc Int : 555 ms Atrial-sensed ventricular-paced rhythm with occasional AV dual-paced complexes and with occasional Pr emature ventricular complexes Abnormal ECG When compared with ECG of 18-MAY-2020 16:41, (Unconfirmed) Premature ventricular complexes are now Present Vent. rate has increased BY 23 BPM Confirmed by Nicole SHERIDAN ([id number]) on 05/20/2020 5:35:27 PM Referred By: Confirmed By:Nicole SHERIDAN
[2020-05-20] MEDS: cefTRIAXone\\ROCEPHIN 1 GM in Sodium Chloride 0.9% 100 ML IVPB SCH (20:28)
[2020-05-21 05:28] LABS: #Basophils 0.1 thou/uL (0.0-0.2); #Eosinphils 0.3 thou/uL (0.0-0.7); #Lymphocytes 2.8 thou/uL (1.20-3.40); #Monocytes 0.7 thou/uL (0.11-0.59); #Neutrophils 3.9 thou/uL (1.40-6.50); %Basophils 0.9 % (0.0-1.0); %Eosinophils 3.8 % (0.0-10.0); %Monocytes 8.9 % (0.0-10.0); %Neutrophils 50.4 % (42.0-75.0); Hemoglobin 10.8 g/dL (12.0-16.0); Mean Corpuscular HGB CONC 33.4 g/dL (32.0-36.0); Mean Corpuscular Hemoglobin 30.9 pg (27.0-31.0); Mean Corpuscular Volume 92.4 fL (78.0-98.0); Mean Platelet Volume 6.8 fL (7.4-10.4); Platelet Count 241 thou/uL (130-400); White Blood Cell (WBC) Count 7.7 thou/uL (4.8-10.8)
[2020-05-21 05:44] LABS: Anion Gap 14 mmol/L (10-20); BUN (Urea Nitrogen) 26 mg/dL (9.8-20.1); Calc. Creatinine Clearance 111 mL/min (70-130); Calcium 8.5 mg/dL (7.8-10.44); Carbon Dioxide 18 mmol/L (23-31); Chloride 111 mmol/L (98-107); Glucose 90 mg/dL (80-115); Potassium 3.8 mmol/L (3.5-5.1); Sodium 139 mmol/L (136-145)
[2020-05-21] MEDS: Levothyroxine Sodium 25 MCG TAB PO SCH (06:00)
[2020-05-21] MEDS: Mometasone 100 MCG/Formoterol 5 MCG 120 PUFF INHALER INH SCH (08:10)
[2020-05-21] MEDS: Aspirin 81 mg Enteric Coated Tablet PO SCH (09:12)
[2020-05-21] MEDS: Cholecalciferol 1,000 UNITS (25 MCG) TAB PO SCH (09:12)
[2020-05-21 15:41] VITALS: TEMP 98.3
--- NOTE | 2020-05-21 16:17 | DIS ---
DATE OF ADMISSION: 05/19/2020 DATE OF DISCHARGE: 05/21/2020 DISCHARGE DIAGNOSES: 1. Syncopal episode, multifactorial including dehydration and electrolyte disturbance. 2. Urinary tract infection with Escherichia coli species. 3. Hypomagnesemia, resolved. 4. Bifascicular bundle-branch block with normal functioning pacemaker device. 5. Hypertension, stable. 6. Hypothyroidism, stable. CONSULTATIONS: Dr. Barnard with Cardiology Service. PERTINENT LABORATORY AND X-RAY FINDINGS: Creatinine ranged between 0.88 and 1.41. Estimated GFR ranged between 37 and 64. Magnesium level ranged between 1.4 and 2.4. Troponin I negative x2. BNP 29. Total cholesterol 160, triglycerides 63, HDL 56, LDL 91. TSH 1.65. CBC showed a white blood cell count ranged between 7.7 and 12.3. Urine culture dated 05/18/2020, showed 50,000 to 75,000 colonies of Escherichia coli species, sensitive to quinolones. Clostridium difficile antigen and toxin dated 05/19/[address] of the brain without contrast dated 05/18/2020, showed no acute intracranial process. Portable chest x-ray dated 05/18/2020, showed no acute cardiopulmonary process. MRI of the brain dated 05/19/2020, showed no evidence for acute infarct. Carotid Doppler study dated 05/20/2020, showed no hemodynamically significant stenosis. HOSPITAL COURSE: The patient was initially admitted after presenting status post syncopal episode. The patient underwent general syncopal workup including CT and MRI imaging of the brain showing no evidence of acute intracranial process or CVA. Metabolic screening did show evidence of urinary tract infection with Escherichia coli species on culture. The patient received IV Rocephin and IV fluid replacement. The patient underwent pacemaker interrogation showing normal functioning device as well as replacement for magnesium due to magnesium level 1.4. The patient clinically stabilized with general supportive management, electrolyte replacement, and IV antibiotics. Overall, the patient did remain clinically stable. Cardiology consultation was obtained with recommendations for supportive management and electrolyte replacement. I have examined the patient at the time of discharge and discussed followup instructions. The patient verbalized understanding and agreement, ready for discharge on 05/21/2020. DISCHARGE MEDICATIONS: 1. Cranberry extract 400 mg p.o. daily. 2. Ibuprofen 800 mg p.o. b.i.d. 3. Levothyroxine 25 mcg p.o. daily. 4. Nexium 40 mg p.o. q.a.m. 5. Symbicort 80/4.5 one puff inhaled b.i.d. 6. Vitamin D3, 1000 units p.o. daily. 7. Enteric-coated aspirin 81 mg p.o. daily. 8. Levaquin 500 mg p.o. daily x7 days. FOLLOWUP: The patient may follow up with her primary care provider, Criselda Ortiz within 7 days of discharge. CONDITION ON DISCHARGE: Stable. ACTIVITY: Ad paul. DIET: Heart healthy. CODE STATUS: Full. DISPOSITION: To home, 05/21/2020. TIME SPENT: Total time preparing and coordinating discharge is 32 minutes. Job ID: [id number]
[2020-05-21 16:23] VITALS: BP 146/84
--- NOTE | 2020-05-24 16:55 | EKG ---
Test Reason : Blood Pressure : / mmHG Vent. Rate : 073 BPM Atrial Rate : 073 BPM P-R Int : 184 ms QRS Dur : 124 ms QT Int : 418 ms P-R-T Axes : 058 071 009 degrees QTc Int : 460 ms Atrial-sensed ventricular-paced rhythm with frequent AV dual-paced complexes Abnormal ECG Confirmed by MARYA FERNANDEZ ([id number]), multimedia editor KIA NATARAJAN ([id number]) on 05/24/2020 4:55:22 PM Referred By: Confirmed By:MARYA Pearson
== END 2020-05-21 16:18 | disposition home or self-care (01) | DRG 690 ==
LOC: ERS 16:24 → 2SE 19:37 → OBSVTOIN 05-19 16:55
PROVIDERS: ADMIT Family Medicine; ATTEND Family Medicine
DX: N39.0 Urinary tract infection, site not specified (principal); I45.2 Bifascicular block; Z68.42 Body mass index [BMI] 45.0-49.9, adult; I47.2 Ventricular tachycardia; J45.909 Unspecified asthma, uncomplicated; E86.0 Dehydration; R11.0 Nausea; E03.9 Hypothyroidism, unspecified; I10 Essential (primary) hypertension; E66.01 Morbid (severe) obesity due to excess calories; K21.9 Gastro-esophageal reflux disease without esophagitis; B96.20 Unspecified Escherichia coli [E. coli] as the cause of diseases classified elsewhere; R19.7 Diarrhea, unspecified; Z96.653 Presence of artificial knee joint, bilateral; E83.42 Hypomagnesemia; Z90.710 Acquired absence of both cervix and uterus; Z95.0 Presence of cardiac pacemaker; Z90.89 Acquired absence of other organs
CPT/HCPCS: 36415; 70450; 70551; 71045; 80048; 80053; 80061; 81003; 81015; 83735; 83880; 84443; 84484; 85025; 87077; 87086; 87186; 87324; 87449; 93005; 93010; 93880; 94664; G0378; J0696; J2550; J3475; J3490; J7050

== ENCOUNTER 2021-03-24 07:57 | Outpatient (CLI) | payer MEDICARE, MEDICAID | END 2021-03-24 07:58 | disposition home or self-care (01) | LOC: BICMAMMO 07:57 | PROVIDERS: ATTEND Nurse Practitioner Family | DX: Z12.31 Encounter for screening mammogram for malignant neoplasm of breast (principal); Z91.89 Other specified personal risk factors, not elsewhere classified | CPT/HCPCS: 77063; 77067 ==

== ENCOUNTER 2021-09-23 08:13 | Outpatient (CLI) | payer MEDICARE, MEDICAID | END 2021-09-23 08:14 | disposition home or self-care (01) | LOC: BICMAMMO 08:13 | PROVIDERS: ATTEND Family Medicine | DX: Z13.820 Encounter for screening for osteoporosis (principal); Z78.0 Asymptomatic menopausal state; M85.851 Other specified disorders of bone density and structure, right thigh; M85.852 Other specified disorders of bone density and structure, left thigh | CPT/HCPCS: 77080 ==

== ENCOUNTER 2022-09-08 08:50 | Inpatient (IN) | payer MEDICARE, MEDICAID ==
[2022-09-08] MEDS ORDERED: methylPREDNISolone Sod Succ/PF 125 MG/2 ML VIAL ONE (11:20)
[2022-09-08 11:44] LABS: PTT 26.2 sec (22.9-36.1)
[2022-09-08 11:49] LABS: #Basophils 0.1 thou/uL (0.0-0.2); #Eosinphils 0.1 thou/uL (0.0-0.7); #Lymphocytes 2.2 thou/uL (1.20-3.40); #Monocytes 0.8 thou/uL (0.11-0.59); #Neutrophils 6.7 thou/uL (1.40-6.50); %Basophils 0.5 % (0.0-1.0); %Eosinophils 1.1 % (0.0-10.0); %Lymphocytes 21.9 % (21.0-51.0); %Monocytes 8.1 % (0.0-10.0); %Neutrophils 68.3 % (42.0-75.0); Hemoglobin 12.1 g/dL (12.0-16.0); Mean Corpuscular HGB CONC 33.4 g/dL (32.0-36.0); Mean Corpuscular Hemoglobin 32.4 pg (27.0-31.0); Mean Corpuscular Volume 97.1 fl (78.0-98.0); Mean Platelet Volume 6.7 fL (7.4-10.4); Platelet Count 293 10x3/uL (130-400); RBC Distribution Width 10.9 % (11.5-14.5); Red Blood Cell (RBC) Count 3.75 mill/uL (4.20-5.40); White Blood Cell (WBC) Count 9.9 10x3/uL (4.8-10.8)
[2022-09-08 12:28] LABS: SARS-CoV-2 NAA Rapid Test Not Detected (NotDetected)
[2022-09-08 12:56] LABS: Chloride 106 mmol/L (98-107); Potassium 3.5 mmol/L (3.5-5.1); Sodium 140 mmol/L (136-145)
[2022-09-08 12:57] LABS: Calcium 9.4 mg/dL (7.8-10.44); Glucose 85 mg/dL (83-110)
[2022-09-08 12:58] LABS: Globulin 3.9 g/dL (2.4-3.5); Protein, Total 7.9 g/dL (5.8-8.1)
[2022-09-08 12:59] LABS: Anion Gap 16 mmol/L (10-20); Bilirubin, Total 0.5 mg/dL (0.2-1.2); Carbon Dioxide 22 mmol/L (23-31)
[2022-09-08 13:00] LABS: Alkaline Phosphatase 74 U/L (40-110)
[2022-09-08 13:01] LABS: BUN (Urea Nitrogen) 25 mg/dL (9.8-20.1); Calc. Creatinine Clearance 0 mL/min (70-130); Estimated GFR 52
[2022-09-08 13:02] LABS: AST (SGOT) 19 U/L (5-34)
[2022-09-08 13:03] LABS: ALT (SGPT) 20 U/L (8-55)
[2022-09-08] MEDS ORDERED: cefTRIAXone (ROCEPHIN) 2 GM VIAL ONE (14:48)
[2022-09-08] MEDS ORDERED: Iopamidol-370 76% 500 ML MDV (1 ML CHARGE) ONE (15:26)
[2022-09-08] MEDS ORDERED: Acetaminophen 325 MG TAB PO PRN (15:38)
[2022-09-08] MEDS ORDERED: Azithromycin 1,000 MG in Sodium Chloride 0.9% 500 ML IVPB SCH (15:45)
[2022-09-08] MEDS ORDERED: Azithromycin 500 MG VIAL ONE (16:12)
[2022-09-08 17:37] LABS: Troponin I Less than 0.010 ng/mL (< 0.028)
[2022-09-08] MEDS ORDERED: Budesonide 0.25 MG/2 ML NEB INH SCH (18:30)
[2022-09-08] MEDS: Azithromycin 500 MG in Sodium Chloride 0.9% 250 ML 250 ML IVPB SCH (18:49)
[2022-09-08] MEDS: Mometasone 200 MCG/Formoterol 5 MCG 120 PUFF INHALER INH SCH (19:31)
[2022-09-08] MEDS ORDERED: Ibuprofen 800 MG TAB PO SCH (23:30)
[2022-09-08] MEDS: guaiFENesin/DM ER PO SCH (23:33)
[2022-09-09 04:30] LABS: #Lymphocytes 1.6 thou/uL (1.20-3.40); #Monocytes 0.2 thou/uL (0.11-0.59); #Neutrophils 7.1 thou/uL (1.40-6.50); %Basophils 0.1 % (0.0-1.0); %Eosinophils 0.1 % (0.0-10.0); %Lymphocytes 17.9 % (21.0-51.0); %Monocytes 2.1 % (0.0-10.0); %Neutrophils 79.8 % (42.0-75.0); Hemoglobin 11.2 g/dL (12.0-16.0); Mean Corpuscular Hemoglobin 32.8 pg (27.0-31.0); Mean Corpuscular Volume 96.4 fl (78.0-98.0); Mean Platelet Volume 6.9 fL (7.4-10.4); Platelet Count 292 10x3/uL (130-400); RBC Distribution Width 10.8 % (11.5-14.5); Red Blood Cell (RBC) Count 3.43 mill/uL (4.20-5.40); White Blood Cell (WBC) Count 8.9 10x3/uL (4.8-10.8)
[2022-09-09] MEDS: Levothyroxine Sodium 25 MCG TAB PO SCH (05:19)
[2022-09-09] MEDS: Mometasone 200 MCG/Formoterol 5 MCG 120 PUFF INHALER INH SCH ×2 (07:35→18:10)
[2022-09-09] MEDS ORDERED: Ibuprofen 800 MG TAB PO SCH (08:00)
[2022-09-09] MEDS ORDERED: Apixaban 5 MG TAB PO SCH (09:00)
[2022-09-09] MEDS: guaiFENesin/DM ER PO SCH ×2 (09:07→21:26)
[2022-09-09] MEDS ORDERED: cefTRIAXone\\ROCEPHIN 1 GM in Sodium Chloride 0.9% 100 ML IVPB SCH (15:00)
[2022-09-09] MEDS: Azithromycin 500 MG in Sodium Chloride 0.9% 250 ML 250 ML IVPB SCH (16:26)
[2022-09-09] MEDS: Apixaban 5 MG TAB PO SCH (21:26)
[2022-09-10 03:49] VITALS: BMI 51.0
[2022-09-10] MEDS: Levothyroxine Sodium 25 MCG TAB PO SCH (06:24)
[2022-09-10] MEDS: Mometasone 200 MCG/Formoterol 5 MCG 120 PUFF INHALER INH SCH (08:08)
[2022-09-10] MEDS ORDERED: Hydrochlorothiazide 25 MG TAB PO SCH (09:00)
[2022-09-10] MEDS: guaiFENesin/DM ER PO SCH (09:20)
[2022-09-10] MEDS: Apixaban 5 MG TAB PO SCH (09:20)
[2022-09-10 11:52] VITALS: BP 154/82; TEMP 98.2
== END 2022-09-10 12:28 | disposition home or self-care (01) | DRG 194 ==
LOC: ERS 08:50 → 2NO 18:17 → OBSVTOIN 09-09 15:32 → T4-A 09-09 17:24
PROVIDERS: ADMIT Internal Medicine; ATTEND Internal Medicine
DX: J18.9 Pneumonia, unspecified organism (principal); Z68.43 Body mass index [BMI] 50.0-59.9, adult; J45.909 Unspecified asthma, uncomplicated; I48.91 Unspecified atrial fibrillation; I10 Essential (primary) hypertension; E03.9 Hypothyroidism, unspecified; Z96.653 Presence of artificial knee joint, bilateral; E66.01 Morbid (severe) obesity due to excess calories; Z20.822 Contact with and (suspected) exposure to COVID-19; Z88.8 Allergy status to other drugs, medicaments and biological substances; Z79.82 Long term (current) use of aspirin; Z79.899 Other long term (current) drug therapy; Z90.710 Acquired absence of both cervix and uterus; Z90.49 Acquired absence of other specified parts of digestive tract; Z98.890 Other specified postprocedural states; Z95.0 Presence of cardiac pacemaker
CPT/HCPCS: 36415; 71046; 71275; 80053; 83880; 84484; 85025; 85379; 85610; 85730; 87040; 87149; 93005; 94664; J0456; J0696; J2930; J3490; J7050; J7611; Q9967

== ENCOUNTER 2023-05-20 10:49 | Outpatient (CLI) | payer MEDICARE, MEDICAID | END 2023-05-20 10:50 | disposition home or self-care (01) | LOC: BICMAMMO 10:49 | PROVIDERS: ATTEND Family Medicine | DX: Z12.31 Encounter for screening mammogram for malignant neoplasm of breast (principal); Z13.820 Encounter for screening for osteoporosis; M85.80 Other specified disorders of bone density and structure, unspecified site; M85.851 Other specified disorders of bone density and structure, right thigh; M81.0 Age-related osteoporosis without current pathological fracture | CPT/HCPCS: 77063; 77067; 77080 ==

== ENCOUNTER 2025-02-05 08:17 | Outpatient (CLI) | payer MEDICARE, MEDICAID | END 2025-02-05 08:18 | disposition home or self-care (01) | LOC: BICMAMMO 08:17 | PROVIDERS: ATTEND Family Medicine | DX: M81.0 Age-related osteoporosis without current pathological fracture (principal); M85.851 Other specified disorders of bone density and structure, right thigh | CPT/HCPCS: 77080 ==